=== PATIENT | female | born 1985 | race African-American/Black ===

== ENCOUNTER 2020-06-10 18:49 | Inpatient (IN) ==
[2020-06-10 20:10] LABS: Urine Benzodiazepine Screen None Detected (None Detect); Urine Cannabinoids Screen None Detected (None Detect); Urine Opiates Screen None Detected (None Detect)
[2020-06-10] MEDS ORDERED: Dibucaine 1% OINT 28.35 GM TUBE PR PRN (21:04)
[2020-06-10] MEDS ORDERED: Tetan/Diph/Pertus SYR(Tdap) 0.5 ML SYR(BOOSTRIX) use SYR contains LATEX IM ONE (21:04)
[2020-06-10] MEDS ORDERED: Oxytocin 10 UNITS/ML 1 ML VIAL IM ONE (21:04)
[2020-06-10] MEDS ORDERED: Witch Hazel PAD JAR TOPICAL PRN (21:04)
[2020-06-10] MEDS ORDERED: Glycerin ADULT 2.4 gm SUPP PR PRN (21:04)
[2020-06-10] MEDS ORDERED: Lactated Ringers 1000 ml BAG 1,000 ML IV SCH (22:00)
[2020-06-10] MEDS ORDERED: Lidocaine 1% VIAL 10 MG/ML VIAL ONE (22:39)
[2020-06-11 09:03] LABS: ABS Basophils 0.1 10^3/ul (0-0.2); ABS Eosinophils 0.1 10^3/ul (0-0.6); ABS Lymphocytes 1.6 10^3/ul (1.0-4.8); ABS Monocytes 0.7 10^3/ul (0-0.8); ABS Neutrophils 6.8 10^3/ul (1.5-7.7); Eosinophil % 1.6 %; Hematocrit 34 % (35-47); Hemoglobin 11.7 g/dL (12.0-16.0); Lymphocyte % 17.5 %; Mean Corpuscular HGB Conc 34 g/dL (31-36); Mean Corpuscular Hemoglobin 28 pg (27-31); Mean Corpuscular Volume 82 fL (80-97); Mean Platelet Volume 8.5 fL (7.4-10.4); Nucleated Red Blood Cells % 0.1; Platelet Count 238 10^3/uL (150-450); Red Cell Distribution Width 16 % (10-15); White Blood Count 9.4 10^3/uL (3.5-10.8)
[2020-06-12 07:29] VITALS: BP 103/50
== END 2020-06-12 11:39 | disposition home or self-care (01) | DRG 807 ==
LOC: MCHOBOUT 18:49 → MCHOB 19:18
PROVIDERS: ADMIT Obstetrics & Gynecology; ATTEND Obstetrics & Gynecology